=== PATIENT | male | born 1975 | race Caucasian/White ===

== ENCOUNTER 2016-08-28 11:16 | Emergency (ER) | payer SELFPAY ==
[~2016-08-28] VITALS: Wt 95.3 kg
[2016-08-28 11:58] VITALS: BP 162/85
[2016-08-28] MEDS ORDERED: CLINDAMYCIN HC300 MG PO (12:35)
== END 2016-08-28 13:05 | disposition home or self-care (01) ==
LOC: ED 11:16
DX: K02.9 Dental caries, unspecified (principal); F17.200 Nicotine dependence, unspecified, uncomplicated; Z79.899 Other long term (current) drug therapy

== ENCOUNTER → 2018-06-11 | Outpatient (CLI) | payer OTHER ==
[~2018-06-11] MED LIST: CLINDAMYCIN HC300 MG PO
== END | disposition home or self-care (01) ==
LOC: RAD 09:03
DX: M25.531 Pain in right wrist (principal); M54.2 Cervicalgia

== ENCOUNTER 2019-01-09 22:07 | Emergency (ER) | payer OTHER ==
[~2019-01-09] VITALS: Ht 172.7 cm; Wt 106.6 kg
[2019-01-09] MEDS ORDERED: PREDNISONE10 MG PO (22:32)
== END 2019-01-09 23:09 | disposition home or self-care (01) ==
LOC: ED 22:07
DX: M54.12 Radiculopathy, cervical region (principal); F17.200 Nicotine dependence, unspecified, uncomplicated

== ENCOUNTER 2019-08-17 23:36 | Emergency (ER) | payer OTHER ==
[~2019-08-17] VITALS: Ht 175.2 cm; Wt 102.1 kg
[~2019-08-17 23:36] MED LIST changes: +PREDNISONE10 MG PO
[2019-08-17 23:48] VITALS: BP 159/88
== END 2019-08-18 01:04 | disposition left against medical advice (07) ==
LOC: ED 23:36
DX: M54.2 Cervicalgia (principal); M54.6 Pain in thoracic spine; R45.1 Restlessness and agitation; F10.920 Alcohol use, unspecified with intoxication, uncomplicated; Z53.21 Procedure and treatment not carried out due to patient leaving prior to being seen by health care provider